=== PATIENT | female | born 1995 | race American Indian/Alaskan Native ===

== ENCOUNTER 2021-05-07 06:13 | Outpatient (CLI) | payer MEDICAID ==
[2021-05-07 06:32] VITALS: BP 126/84
[2021-05-07] MEDS ORDERED: D5W/LACTATED RINGERS 1,000 ML IV SCH (08:00)
[2021-05-07 08:37] LABS: Hematocrit 34.7 % (30.3-42.9); Hemoglobin 11.1 gm/dl (10.1-14.3); Mean Corpuscular HGB Conc 32 % (30-34); Mean Corpuscular Volume 88 fl (79-97); Platelet Count 128 K/mm3 (140-440); Red Blood Count 3.97 M/mm3 (3.65-5.03)
--- NOTE | 2021-05-07 08:53 | Ultrasound Report ---
Limited OB Ultrasound Biophysical profile HISTORY: wellbeing. TECHNIQUE: Grayscale and color imaging performed. COMPARISON: None FINDINGS: On limited OB ultrasound, there is a single viable intrauterine gestation with cephalic presentation and heart rate of 143 bpm. MYLES is 6.3 cm. On biophysical profile, the fetus received a score of 2 out of 2 for breathing, movement, posture/ton e, and MYLES. Total score was 8 out of 8. IMPRESSION: 1. Single viable intrauterine gestation as above. 2. Normal BPP. Signer Name: Tutu Veliz MD Signed: 05/07/2021 8:48 AM Workstation Name: [id number]
== END 2021-05-07 09:50 | disposition home or self-care (01) ==
LOC: TRG 06:13 → APU 06:14 → TRG 09:50
PROVIDERS: ATTEND Obstetrics & Gynecology
DX: Z34.93 Encounter for supervision of normal pregnancy, unspecified, third trimester (principal); Z3A.39 39 weeks gestation of pregnancy
CPT/HCPCS: 36415; 76815; 76819; 85027; 86592; 86850; 86900; 86901; J7121; J7060

== ENCOUNTER 2021-05-13 04:57 | Emergency (ER) | payer OTHER ==
[2021-05-13] MEDS ORDERED: SODIUM CHLORIDE 0.9% 1000 ML 1,000 ML IV ONE (08:26)
[2021-05-13] MEDS ORDERED: fentaNYL 100 MCG/2 ML INJ IV ONE ×2 (08:26→11:46)
--- NOTE | 2021-05-13 08:30 | Emergency Department Report ---
ED Abdominal Pain HPI - General Chief Complaint: Abdominal Pain Stated Complaint: ABD PAIN Time Seen by Provider: 05/13/21 08:25 Source: patient Mode of arrival: Ambulatory Limitations: No Limitations - History of Present Illness Initial Comments: Patient presents with pain and vaginal discharge. She delivered May 07. This was a . Patient states that before she was aware, there are no complications. She had a small tear that did require stitches. Over the last several hours, she has had increasing pain in the lower abdomen, vaginal area, and radiating into the rectum. She has had no dysuria or frequency. There is no fevers or chills. She has no cough or congestion. There is no new history of trauma. She still had some vaginal discharge after delivery. She considered that to be normal. Patient states that she did not have any problems with the . Because of the symptoms today, she came here. Her blood pressure is elevated here. She states that she normally does not have elevated blood pressure. The pain seems to be constant. It does not wax and wane. It does not radiate or migrate otherwise. Severity scale (0 -10): 7 - Related Data Previous Rx's Medication Instructions Recorded Last Taken Type Docusate Sodium [Colace] 100 mg PO BID PRN #60 capsule 04/22/16 Unknown Rx Ferrous Sulfate [Feosol 325 MG tab] 325 mg PO BID #60 tablet 04/22/16 Unknown Rx Ibuprofen [Motrin] 800 mg PO Q8HR PRN #30 tablet 04/22/16 Unknown Rx Vit-Fe Fumar-FA [ 1 tab PO QDAY #30 tablet 04/22/16 Unknown Rx Vitamin] oxyCODONE /ACETAMINOPHEN [Percocet 1 tab PO Q6HR PRN #40 tablet 04/22/16 Unknown Rx 5/325] Amoxicillin [Trimox] 500 mg PO Q8HR #42 capsule 05/13/21 Unknown Rx Allergies Allergy/AdvReac Type Severity Reaction Status Date / Time cephalexin [From Keflex] Allergy Rash Verified 05/07/21 18:34 ED Review of Systems ROS: Stated complaint: ABD PAIN Other details as noted in HPI Comment: All other systems reviewed and negative Constitutional: denies: fever Eyes: denies: vision change ENT: denies: epistaxis Respiratory: denies: cough Cardiovascular: denies: chest pain Endocrine: denies: unexplained weight loss Gastrointestinal: as per HPI Genitourinary: as per HPI Musculoskeletal: denies: back pain Skin: denies: rash Neurological: denies: headache Hematological/Lymphatic: denies: easy bruising ED Past Medical Hx - Past Medical History Hx Hypertension: No Hx Diabetes: No Hx Deep Vein Thrombosis: No Hx GERD: Yes Hx Renal Disease: No Hx Sickle Cell Disease: No Hx Seizures: No Hx Asthma: No Hx HIV: No Additional medical history: Anemia - Surgical History Additional Surgical History: C section - Family History Family history: no significant - Social History Smoking Status: Never Smoker - Medications Home Medications: Home Medications Medication Instructions Recorded Confirmed Last Taken Type Docusate Sodium [Colace] 100 mg PO BID PRN #60 capsule 04/22/16 Unknown Rx Ferrous Sulfate [Feosol 325 MG tab] 325 mg PO BID #60 tablet 04/22/16 Unknown Rx Ibuprofen [Motrin] 800 mg PO Q8HR PRN #30 tablet 04/22/16 Unknown Rx Vit-Fe Fumar-FA [ 1 tab PO QDAY #30 tablet 04/22/16 Unknown Rx Vitamin] oxyCODONE /ACETAMINOPHEN [Percocet 1 tab PO Q6HR PRN #40 tablet 04/22/16 Unknown Rx 5/325] Amoxicillin [Trimox] 500 mg PO Q8HR #42 capsule 05/13/21 Unknown Rx ED Physical Exam - General Limitations: No Limitations, Other (Pulse ox noted and normal) General appearance: alert, in no apparent distress, other (Nontoxic) - Head Head exam: Present: atraumatic, normocephalic - Eye Eye exam: Present: normal appearance, PERRL, EOMI. Absent: scleral icterus - ENT ENT exam: Present: normal orophraynx, normal external ear exam - Neck Neck exam: Present: normal inspection. Absent: meningismus - Respiratory Respiratory exam: Present: normal lung sounds bilaterally. Absent: respiratory distress - Cardiovascular Cardiovascular Exam: Present: regular rate, normal rhythm - GI/Abdominal GI/Abdominal exam: Present: soft, tenderness (Suprapubic). Absent: guarding, rebound - Extremities Exam Extremities exam: Present: normal capillary refill. Absent: pedal edema - Back Exam Back exam: Absent: CVA tenderness (R), CVA tenderness (L) - Neurological Exam Neurological exam: Present: alert, oriented X3, CN II-XII intact, normal gait, reflexes normal, other (No clonus). Absent: motor sensory deficit - Psychiatric Psychiatric exam: Present: normal affect, normal mood - Skin Skin exam: Present: warm, dry ED Course Vital Signs 05/13/21 05/13/21 05/13/21 06:55 12:05 13:25 Temperature 98.5 F 99.6 F Pulse Rate 68 78 Respiratory 16 16 Rate Blood Pressure 145/102 153/95 148/88 [Right] O2 Sat by Pulse 99 98 Oximetry - Reevaluation(s) Reevaluation #1: 05/13/21 08:29 IV labs ordered. Ultrasound ordered. Old records reviewed. Patient will be placed in observation status in the ED. She may need extensive evaluation including a CT after ultrasound. She may have preeclampsia given her current blood pressure. Reevaluation #2: 05/13/21 11:47 UA was resulted. Patient was treated for the urinary tract infection. Reevaluation #3: 05/13/21 14:44 Ultimately, [employer] call back. We discussed labs and blood pressure. They are comfortable seeing the patient tomorrow. Patient does not have evidence of preeclampsia at this time. There is no evidence of help syndrome. ED Medical Decision Making - Lab Data Result diagrams: 05/13/21 08:30 05/13/21 08:32 - Radiology Data Radiology results: report reviewed - Medical Decision Making Patient presented with discomfort in the perineal area. She did not have any evidence that would suggest endometritis. She did not have peritonitis. Blood pressure readings were elevated, but there were no other symptoms of preeclampsia. She did not have proteinuria or help syndrome. Case was discussed with gynecology who will see the patient in the office in follow- up. Critical Care Time: No Critical care attestation.: If time is entered above; I have spent that time in minutes in the direct care of this critically ill patient, excluding procedure time. ED Disposition Clinical Impression: perineal pain, Elevated blood pressure reading, Cystitis Disposition: HOME / SELF CARE / HOMELESS Is pt being admited?: No Condition: Stable Instructions: Abdominal Pain (ED), Pelvic Pain, Female, [id number], Hypertension, Adult, [id number], Hypertension, Adult Additional Instructions: Avoid salt. Drink plenty water. Take antibiotics. Return for problems. Follow-up with your regular doctor for recheck and further management. Follow- up with your equine internship for blood pressure checks tomorrow. Prescriptions: Amoxicillin [Trimox] 500 mg PO Q8HR #42 capsule Referrals: PRIMARY CARE, [Primary Care Provider] - 3-5 Days AMBER KAN MD [Staff Physician] - 3-5 Days
[2021-05-13 09:01] LABS: Basophils % (Auto) 0.3 % (0.0-1.8); Eosinophils # (Auto) 0.1 K/mm3 (0.0-0.4); Eosinophils % (Auto) 1.3 % (0.0-4.3); Hematocrit 37.8 % (30.3-42.9); Hemoglobin 12.2 gm/dl (10.1-14.3); Lymphocytes # (Auto) 1.4 K/mm3 (1.2-5.4); Lymphocytes % (Auto) 25.9 % (13.4-35.0); Mean Corpuscular HGB Conc 32 % (30-34); Mean Corpuscular Volume 89 fl (79-97); Monocytes # (Auto) 0.3 K/mm3 (0.0-0.8); Monocytes % (Auto) 6.1 % (0.0-7.3); Platelet Count 224 K/mm3 (140-440); Red Blood Count 4.22 M/mm3 (3.65-5.03)
[2021-05-13 09:07] LABS: Red Cell Distribution Width 20.3 % (13.2-15.2)
[2021-05-13 09:25] LABS: Alanine Aminotransferase 27 units/L (7-56); Albumin 3.4 g/dL (3.9-5); Blood Urea Nitrogen 5 mg/dL (7-17); Calcium 9.1 mg/dL (8.4-10.2); Hemolysis Index 1
[2021-05-13 09:34] LABS: BUN/Creatinine Ratio 13
--- NOTE | 2021-05-13 09:49 | Ultrasound Report ---
ULTRASOUND PELVIS INDICATION: pain and discharge. TECHNIQUE: Transabdominal. Duplex Color Doppler used: Yes. COMPARISON: OB ultrasound from 05/07/2021. FINDINGS: Uterus: Present. Size: 22.8 x 8.7 x 12.7 cm. Endometrial complex: Normal measuring 1.2 cm. Mass lesions: None. Additional findings: None. Right Ovary: Size: 2.8 x 1.4 x 2.4 cm Blood flow: Normal. Cyst or mass: None. Left Ovary: Size: 3.5 x 2.2 x 1.8 cm Blood flow: Normal. Cyst or mass: None. Urinary Bladder: Normal. Free Fluid: None. Additional Findings: None. IMPRESSION: 1. No acute sonographic abnormality of the pelvis. 2. Expected enlargement of the uterus. Signer Name: Reinaldo Barrera MD Signed: 05/13/2021 9:44 AM Workstation Name: [id number]
[2021-05-13 10:31] LABS: Bilirubin,Urine NEG (Negative); Blood,Urine LG (Negative); Color,Urine Straw (Yellow); Mucus,Urine FEW /HPF; Protein,Urine <15 mg/dL mg/dL (Negative); Urobilinogen,Urine < 2.0 mg/dL (<2.0)
[2021-05-13] MEDS ORDERED: cephALEXin 500 MG CAP PO ONE (11:47)
[2021-05-13] MEDS ORDERED: AMOXICILLIN 500 MG CAP PO ONE (12:13)
[2021-05-13 13:26] VITALS: BP 148/88
== END 2021-05-13 14:55 | disposition home or self-care (01) ==
LOC: ED 04:57
DX: O90.89 Other complications of the puerperium, not elsewhere classified (principal); R03.0 Elevated blood-pressure reading, without diagnosis of hypertension; Z88.1 Allergy status to other antibiotic agents; N30.90 Cystitis, unspecified without hematuria
CPT/HCPCS: 36415; 76856; 80053; 81001; 85025; 87086; 96361; 96374; 99284; J3010; J7030; Q0162

== ENCOUNTER 2021-05-18 18:07 | Emergency (ER) | payer OTHER ==
[2021-05-18 18:50] VITALS: BP 182/99
[2021-05-18] MEDS ORDERED: MAGNESIUM SULFATE 4 GM/100 ML BAG IV ONE (20:33)
== END 2021-05-19 04:00 | disposition left against medical advice (07) ==
LOC: ED 18:07
DX: R51.9 Headache, unspecified (principal); Z53.21 Procedure and treatment not carried out due to patient leaving prior to being seen by health care provider
CPT/HCPCS: J3475